=== PATIENT | female | born 1970 | race Hispanic/Latino ===

== ENCOUNTER 2018-04-06 21:46 | Emergency (ER) | payer MEDICAID, OTHER ==
[2018-04-06 22:38] LABS: APPEARANCE,URINE Clear (CLEAR); BASOPHILS % (AUTO) 0.6 % (0.0-5.0); BILIRUBIN,URINE Negative (NEGATIVE); COLOR,URINE Yellow (YELLOW); EOSINOPHILS % (AUTO) 1.3 % (0.0-8.0); GLUCOSE, URINE (UA) Negative (NEGATIVE); HEMATOCRIT 34.1 % (36-48); KETONES,URINE Negative (NEGATIVE); LEUKOCYTE ESTERASE ,URINE Negative (NEGATIVE); LYMPHOCYTES % (AUTO) 32.7 % (21.0-51.0); MEAN CORPUSCULAR HEMOGLOBIN 23.3 pg (27.0-33.0); MEAN CORPUSCULAR HGB CONC 31.9 g/dL (32.0-36.0); MEAN CORPUSCULAR VOLUME 72.9 fL (79-99); MONOCYTES % (AUTO) 11.5 % (3.0-13.0); NEUTROPHILS % (AUTO) 53.9 % (40.0-77.0); NITRATE,URINE Negative (NEGATIVE); OCCULT BLOOD,URINE Negative (NEGATIVE); PLATELET COUNT (AUTO) 341 K/uL (130-400); PROTEIN,URINE Negative (NEGATIVE); RED BLOOD CELL COUNT(AUTO) 4.67 MIL/uL (4.00-5.50); RED CELL DISTRIBUTION WIDTH 17.2 % (11.0-15.5); UROBILINOGEN,URINE 0.2 mg/dL (0.2-1.0); WHITE BLOOD COUNT (AUTO) 14.5 K/uL (4.8-10.8)
[2018-04-06 22:45] LABS: CREATININE 0.8 mg/dL (0.5-1.5); POTASSIUM 3.8 mmol/L (3.5-5.1)
[2018-04-06 22:50] LABS: ALBUMIN 3.1 g/dL (3.5-5.0); BILIRUBIN,TOTAL 0.2 mg/dL (0.2-1.0); TOTAL PROTEIN, SERUM 6.8 g/dL (6.0-8.3)
[2018-04-06] MEDS ORDERED: SODIUM CHLORIDE 0.9% 1000ML 1,000 ML IV ONE (23:05)
[2018-04-06] MEDS ORDERED: ACETAMINOPHEN EXTRA STRENGTH 500 MG TABLET ONE (23:06)
[2018-04-06] MEDS ORDERED: KETOROLAC TROMETHAMINE 30MG/ML ONE (23:06)
[2018-04-07] MEDS ORDERED: DiphenhydrAMINE HCL 50 MG/ML VIAL ONE (00:54)
[2018-04-07] MEDS ORDERED: SODIUM CHLORIDE 0.9% 500ML 500 ML IV ONE (00:54)
[2018-04-07] MEDS ORDERED: LIDOCAINE HCL 1% 20 ML VIAL ONE (00:55)
== END 2018-04-07 02:04 | disposition home or self-care (01) ==
LOC: EDH 21:46
DX: E86.9 Volume depletion, unspecified (principal); B34.9 Viral infection, unspecified; M79.10 Myalgia, unspecified site
CPT/HCPCS: 36415; 71046; 80053; 81003; 85025; 87804 ×2; 96361; 96374; 96375; 99284; J1200; J1885; J7030; J7040

== ENCOUNTER → 2019-11-12 | Outpatient (CLI) | payer OTHER | END | disposition home or self-care (01) | LOC: OIH 11-11 11:40 | PROVIDERS: ATTEND Internal Medicine | DX: M35.9 Systemic involvement of connective tissue, unspecified (principal); M79.10 Myalgia, unspecified site; M53.83 Other specified dorsopathies, cervicothoracic region; I73.00 Raynaud's syndrome without gangrene; M54.2 Cervicalgia | CPT/HCPCS: 71046 ==

== ENCOUNTER 2019-12-26 20:43 | Emergency (ER) | payer OTHER ==
[2019-12-26] MEDS ORDERED: KETOROLAC TROMETHAMINE 60 MG/2 ML VIAL ONE (21:14)
[2019-12-26] MEDS ORDERED: LIDOCAINE 5% TOPICAL PATCH TP ONE (21:14)
[2019-12-26] MEDS ORDERED: DIAZEPAM 5 MG TABLET ONE (21:35)
== END 2019-12-26 22:11 | disposition home or self-care (01) ==
LOC: EDH 20:43
DX: M54.6 Pain in thoracic spine (principal); M62.838 Other muscle spasm; M25.80 Other specified joint disorders, unspecified joint; I10 Essential (primary) hypertension; Z90.49 Acquired absence of other specified parts of digestive tract; Z90.710 Acquired absence of both cervix and uterus; Z88.8 Allergy status to other drugs, medicaments and biological substances
CPT/HCPCS: 96372; 99283; J1885

== ENCOUNTER 2022-12-06 10:39 | Day surgery (SDC) | payer OTHER ==
[2022-12-06] VITALS (7 sets, daily range): BP systolic 111–120; BP diastolic 59–78; PULSE 67–72; RESP 8–18
[~2022-12-06 10:39] MED LIST: AMLODIPINE PO; BELI200A SQ; BUSP5TAB3 PO; DULO60CA64 PO; IBUP-2077 PO; OMEP40CA21 PO
[2022-12-06] MEDS ORDERED: 0.9%NACL 1000ML 1,000 ML IV ONE (10:49)
[2022-12-06] MEDS ORDERED: LIDOCAINE PF 100MG/5ML (2%) SYRINGE 5ML ONE (12:08)
[2022-12-06] MEDS ORDERED: PROPOFOL 10 MG/ML 20ML VIAL IV ONE (12:08)
[2022-12-06] MEDS ORDERED: FENTANYL CITRATE PF 50 MCG/1 ML 2ML VIAL ONE (13:00)
== END 2022-12-06 14:20 | disposition home or self-care (01) ==
LOC: ENDO 10:39 → DAH 10:39 → ENDO 14:20
PROVIDERS: ATTEND Internal Medicine Gastroenterology
DX: R10.11 Right upper quadrant pain (principal); Z20.822 Contact with and (suspected) exposure to COVID-19; R14.0 Abdominal distension (gaseous); K21.00 Gastro-esophageal reflux disease with esophagitis, without bleeding; K29.50 Unspecified chronic gastritis without bleeding; R19.7 Diarrhea, unspecified; K59.00 Constipation, unspecified; I10 Essential (primary) hypertension; F32.A Depression, unspecified; Z98.890 Other specified postprocedural states; Z86.16 Personal history of COVID-19; Z82.49 Family history of ischemic heart disease and other diseases of the circulatory system; Z90.710 Acquired absence of both cervix and uterus; Z83.3 Family history of diabetes mellitus; Z80.0 Family history of malignant neoplasm of digestive organs; Z72.89 Other problems related to lifestyle
CPT/HCPCS: 88305; 88312; 43239; J3010; J7030 ×2; J2001; J2704; A4620; A4215 ×2; A4223; A7002; A4222; A4221; A4663; A4216; A4606; J3490